=== PATIENT | male | born 1965 | race Caucasian/White ===

== ENCOUNTER → 2018-03-10 | Outpatient (CLI) | payer MEDICAID | LOC: CIMAGING 12:51 | PROVIDERS: ATTEND Internal Medicine | DX: Z87.01 Personal history of pneumonia (recurrent) (principal); Z09 Encounter for follow-up examination after completed treatment for conditions other than malignant neoplasm | CPT/HCPCS: 71046-PO ==

== ENCOUNTER → 2018-06-01 | Outpatient (CLI) | payer MEDICAID | LOC: CIMAGING 14:32 | PROVIDERS: ATTEND Internal Medicine | DX: L53.9 Erythematous condition, unspecified (principal); M79.89 Other specified soft tissue disorders | CPT/HCPCS: 93971-PO ==